=== PATIENT | male | born 1975 | race Caucasian/White ===

== ENCOUNTER 2016-11-27 12:55 | Emergency (ER) | payer OTHER ==
[~2016-11-27] VITALS: Ht 188 cm; Wt 96.7 kg
[2016-11-27 13:11] VITALS: BP 124/65
--- NOTE | 2016-11-27 14:26 | NUR ---
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 ER MD MADE AWARE OF PT STATUS.
[2016-11-27] MEDS ORDERED: KETOROLAC 60 MG/2 ML VIAL IM ONE (14:55)
[2016-11-27 16:14] VITALS: BP 122/74
--- NOTE | 2016-11-27 16:15 | NUR ---
Dispo and medical decision making. DC home with instructions and prescription. All instructions understood by patient well. VSWNL.
== END 2016-11-27 16:15 | disposition home or self-care (01) ==
LOC: MED 12:55
DX: M54.6 Pain in thoracic spine (principal); R09.1 Pleurisy; R03.0 Elevated blood-pressure reading, without diagnosis of hypertension
CPT/HCPCS: 71020; 96372; 99284; J1885; 81002